=== PATIENT | female | born 1945 | race Caucasian/White ===

== ENCOUNTER → 2016-10-05 | Outpatient (CLI) | payer MEDICARE, OTHER | LOC: HEART 5 08:30 | DX: I35.0 Nonrheumatic aortic (valve) stenosis (principal) | CPT/HCPCS: 93306 ==

== ENCOUNTER → 2020-08-04 | Outpatient (CLI) | payer MEDICARE, OTHER ==
[~2020-08-04] MED LIST: ADULT LOW DOSE81 MG PO; ALBUTEROL INH; ASPIRIN 325MG325 MG PO; AZO STANDARD95 MG PO; BASAGLAR K100 UNIT/1 SC; CALCIUM CARBON500 MG PO; CARVEDILOL3.125 MG PO; CLARITIN10 MG PO; COREG 3.125M3.125 MG PO; COREG CR 10 MG10 MG PO; COREG6.25 MG PO; COZAAR100 MG PO; CRESTOR10 MG PO; FERROUS SULFAT325 MG PO; FUROSEMIDE40 MG PO; HUMALOG MI100 UNIT/3 SC; HYDRALAZINE HCL25 MG PO; HYDROCHLOROTHIA25 MG PO; HYZAAR 100-251 EACH PO; K-DUR TAB 20 M20 MEQ PO; LANTUS100 UNIT/1 SQ; LASIX20 MG PO; LASIX40 MG PO; LISINOPRIL10 MG PO; NORVASC10 MG PO; NOVOLOG MI100 UNIT/1 SC; NOVOLOG MI100 UNIT/1 SQ; PLAVIX 75 MG TA75 MG PO; PRINIVIL10 MG PO; TOPROL XL25 MG PO; VENTOLIN HFA 66.7 GM INH; VITAMIN D PO; ZAROXOLYN/DIUL2.5 MG PO; [UNRECOGNIZED DRUG - OTHER]
== END ==
LOC: SLEEP 14:31
DX: G47.33 Obstructive sleep apnea (adult) (pediatric) (principal)
CPT/HCPCS: 95811